=== PATIENT | male | born 1945 | race Caucasian/White ===

== ENCOUNTER → 2018-04-13 08:38 | Outpatient (CLI) | payer MEDICARE, OTHER ==
--- NOTE | ~2018-04-13 | EC ---
PATIENT:YAMILETH TRACY DATE OF SERVICE: 04/13/18 SEX: M MEDICAL RECORD: [id number] DATE OF : 43 LOCATION:D.[facility] AGE OF PATIENT: 72 ADMISSION DATE: 04/13/18 REFERRING PHYSICIAN: INTERPRETING PHYSICIAN: ELAINE KELLY MD ECHOCARDIOGRAM REPORT ECHO CHARGES 4 ECHO COMPLETE Date: 04/13 CLINICAL DIAGNOSIS: CAD, HTN, PALPITATIONS ECHOCARDIOGRAPHIC MEASUREMENTS (adult normal given) AC root (d.<3.7cm) 2.4 cm LV Septum d (<1.2 cm> 1.3 cm Valve Excursion 1.2 cm LV Septum (systole) 1.5 cm Left Atria (s.<4.0cm> 3.9 cm LVPW d(<1.2cm) 1.1 cm RV (d.<2.3cm) 3.0 cm LVPW (sytole) 1.2 cm LV diastole(<5.6CM) 4.3 cm MV E-F(>70mm/sec) cm LV systole 3.7 cm LVOT Diameter 2.2 cm MV exc.(>10mm) cm Est.ejection fraction (50-75%) % DOPPLER: LVIT cm/sec A 67 cm/sec E 60 cm/sec LA cm/sec RVSP 19.8 mmHg LVOT 85 cm/sec AOP1/2T m/s Asc. Ao 125 cm/sec RVOT 59 cm/sec RA cm/sec PA 57 cm/sec AV Gradient Peak 6.2 mmHg AV Mean 2.9 mmHg AV Area 3.1 cm MV Gradient Peak 2.9 mmHg MV Mean 1.1 mmHg MV Area cm COMMENTS: Director Of Cardiac Cath Lab: Press Setup Operator: Bobbi Kelly TAPE# PACS Pericardial Effusion N DATE OF SERVICE: PROCEDURE: Transthoracic echocardiogram. FINDINGS: 1. Left ventricle has mild left ventricular hypertrophy that is concentric. 2. The left ventricle has ejection fraction 65%. 3. The left atrium is normal size, shape, structure, and function. 4. The aortic valve is normal. 5. The mitral valve is grossly normal with trace to mild mitral regurgitation. ECHOCARDIOGRAM REPORT [id number] YAMILETH TRACY 6. The tricuspid valve is grossly normal with a normal RVSP. 7. The right ventricle is normal size, shape, structure, and function. 8. The right atrium is upper limits of normal. 9. The pulmonic valve is normal. There is no pericardial effusion. CONCLUSIONS: The patient has evidence of mild hypertensive heart disease with diastolic dysfunction, otherwise a normal echocardiogram for the patient's stated age. TRANSINT:[id number] Voice Confirmation ID: [id number] DOCUMENT ID: [id number] ELAINE KELLY MD at 1435 CC: [id number] DICTATION DATE: 04/16/18 1114 COMPOSITION STONE APPLICATOR: 04/16/18 1136 DEP CLI 04/13/[address] [address]
[~2018-04-13 08:38] MED LIST: ACTOS15 MG PO; BAYER CHEWABLE81 MG PO; COREG 3.1253.125 MG PO; COZAAR50 MG PO; GLIMEPIRIDE2 MG PO; GLUCOPHAGE1000 MG PO; PLAVIX75 MG PO; PRAVACHOL80 MG PO
[2018-05-20 07:36] VITALS: BMI 24.6
== END | disposition home or self-care (01) ==
LOC: D.ECHO 08:38
DX: I25.10 Atherosclerotic heart disease of native coronary artery without angina pectoris (principal); I10 Essential (primary) hypertension; E78.5 Hyperlipidemia, unspecified; R00.2 Palpitations

== ENCOUNTER → 2018-04-27 06:21 | Outpatient (CLI) | payer MEDICARE, OTHER ==
[~2018-04-27] VITALS: Ht 172.7 cm; Wt 73.6 kg
--- NOTE | ~2018-04-27 | OP ---
PATIENT NAME: YAMILETH TRACY MEDICAL RECORD: [id number] :43 LOCATION:D.CAT ADMISSION DATE: SURGEON: ELAINE KELLY MD DATE OF OPERATION: 04/27/2018 PROCEDURE: Left heart catheterization, LV gram, coronary angiogram, direct stenting of the RCA, left ventriculogram. PROCEDURE IN DETAIL: The patient was brought to cardiac catheterization lab in stable condition. Both groins were sterilely prepped and draped as well as the right wrist. We were able to gain access in the right radial artery using modified Seldinger technique and a 6-Belizean sheath was placed. We were then able to selectively engage the left ventricular cavity, the right coronary artery and the left coronary artery respectively for complete angiography. We then turned our attention to interventional. We intubated the right coronary artery with interventional guiding catheter. We were able to get distal wire position with a 0.014 inch wire. We were then able to directly advance a 3.5 x 26 drug-eluting stent into the area of stenosis in the RCA and deployed at 13 atmospheres with a final result of 0% residual stenosis. FINDINGS: 1. The right coronary artery is a large dominant vessel, is shown to have an area of mid stenosis that is approximately 24 mm long, culminating in about 80% stenosis. 2. The left main is normal. 3. The LAD has an ostial 60% stenosis and a mid 80% stenosis. 4. Circumflex is nondominant, but large vessel giving rise to a terminal obtuse marginal branch. The superior branch of the terminal obtuse marginal branch is shown to have an 80% mid stenosis and a 50% proximal stenosis. HEMODYNAMICS: Left ventricular ejection fraction is 65%. End-diastolic pressure is normal. IMPRESSION: Severe multivessel coronary artery disease. Given the opportunity for bypass versus multivessel stenting, the patient had elected stenting. We went ahead and stented the RCA and will stage the LAD and circumflex for the next visit. At this point in time, I would recommend that we continue aggressive dual antiplatelet therapy, aggressive secondary risk factor modification. Follow up in the clinic in 7-10 days. TRANSINT:[id number] Voice Confirmation ID: [id number] DOCUMENT ID: [id number] ELAINE KELLY MD at 1145 CC: [id number] DICTATION DATE: 04/27/18 0855 MARKETING OPERATIONS INTERN: 04/27/18 1153 DEP CLI 04/27/18 [facility] [address] [facility] [place] [address]
--- NOTE | ~2018-04-27 | HEMODYNAMI ---
PATIENT:YAMILETH TRACY MEDICAL RECORD: [id number] : 43 LOCATION:[facility] ADMISSION DATE: 04/27/18 Generatedon:04/27/20188:55 Patient name: YAMILETH TRACY Patient #: [id number] SSN: : 1945 Date of study: 04/27/2018 Page: Of Hemodynamic Procedure Report Patient Data Patient Demographics Procedure consent was obtained First Name: YAMILETH Gender: Male Last Name: ROSSANA : 1945 Middle Initial: A Age: 72 year(s) Patient #: [id number] Race: Additional ID: [id number] Contact details Address: [address] [place] [address] State: [place] City: [place] Zip code: [address] Past Medical History Allergies: No known allergies Admission Admission Data Admission Date: 04/27/2018 Admission Time: 6:21 Admit Source: Other Height (in.): 68 BSA: 1.88 (m2) Height (cm.): 172.72 BMI: 24.94 (kg/m2) Weight (lbs.): 164 Weight (kg.): 74.39 Lab Results Lab Result Date: 04/27/2018 Lab Result Time: 0:00 Biochemistry Name Units Result Min Max BUN mg/dl 11 --(-*--)-- 7 18 Creatinine mg/dl 1 --(--*-)-- 0.6 1.3 CBC Name Units Result Min Max Hemoglobin g/dl 14.7 --(-*--)-- 13.5 17.5 Procedure Procedure Types Cath Procedure Diagnostic Procedure [facility] w/Coronaries PCI Procedure Coronary Stent Coronary Stent Initial Procedure Description Procedure Date Procedure Date: 04/27/2018 Procedure Start Time: 8:28 Procedure End Time: 8:54 Procedure Staff Name Function David Oneill MD Performing Physician Bernardino Watson RN Nurse Romeo Rangel RT Scrub Procedure Data Cath Procedure Fluoroscopy Diagnostic fluoroscopy Total fluoroscopy Time: 5.9 time: 5.9 min min Diagnostic fluoroscopy Total fluoroscopy dose: 616 dose: 616 mGy mGy Contrast Material Contrast Material Type Amount (ml) Isovue 300 81 Entry Location Entry Primary Successful Side Size Upsize Upsize Entry Closure Succes sful Closure Location (Fr) 1 (Fr) 2 (Fr) Remarks Device Remarks Radial Right 6 Fr artery Short Diagnostic catheters Device Type Used For End Catheter Placement DIAGNOSTIC [place]in 110cm LV Angiography 5Fr catheter ([id number]) DIAGNOSTIC [place] 110cm 5 Left Coronary Fr catheter ([id number]) Angiography Procedure Complications No complications Procedure Medications Medication Administration Route Dosage 0.9% NaCl I.V. 100 ml/hr Oxygen etCO2 Nasal cannula 2 l/min Heparin Flush Bag added to field 2 bags (1000units/500ml NS) Lidocaine 2% added to field 20 Radial Cocktail added to field 1 syringe (Verapomil 2mg/Nitro 400mcg/Heparin 1500units) Versed I.V. 2 mg Fentanyl I.V. 50 mcg Radial Cocktail I.A. 1 syringe (Verapomil 2mg/Nitro 400mcg/Heparin 1500units) Angiomax (bolus) I.V. 11 ml Angiomax Drip I.V. drip 26 ml/hr (250mg/50ml NS) (Standard) Plavix P.O. 300 mg Angiomax Drip wasted 26 ml/hr (250mg/50ml NS) (Standard) Hemodynamics Rest BSA: 1.88 (m2) HGB: 14.7 (g/dl) O2 Consumption: Estimated: 214.97 (ml/min) O2 Co nsumption indexed: Estimated:114.35 (ml/min/m) Heart Rate: 68 (bpm) Pressure Samples Time Site Value (mmHg) Purpose Heart Use Rate(bpm) 8:32 LV 137/1,10 EDP 93 8:32 AO 116/68(92) Pullback 82 8:32 LV 112/7,11 Pullback 82 8:39 AO 117/63(89) Snapshot 75 Gradients Valve Time Site 1 Site 2 Mean SEP/DFP Peak To Heart Use (mmHg) (sec/min) Peak Rate (mmHg) (bpm) Aortic 8:32 LV AO 0 82 112/7,11 116/68(92) Calculations Valve P-P Mean Valve Index Valve Source Name Gradient Area Flow (cm2) Aortic 0 0 Snapshots Pre Cath Intra NCS Post Cath Vital Signs Time Heart Resp SPO2 etCO2 NIBP (mmHg) Rhythm Pain Sedation Rate (ipm) (%) (mmHg) Status Level (bpm) 8:20:00 64 14 100 36.8 146/73(122) NSR 0 (11) 10(A) , No pain 8:24:41 68 17 100 37.6 138/75(113) NSR 0 (11) 10(A) , No pain 8:29:26 72 14 100 41.4 132/68(108) NSR 0 (11) 10(A) , No pain 8:34:04 77 14 96 39.1 118/63(83) NSR 0 (11) 10(A) , No pain 8:38:43 77 17 98 37.6 128/73(92) NSR 0 (11) 10(A) , No pain 8:43:24 70 14 100 30.1 113/66(85) NSR 0 (11) 10(A) , No pain 8:48:00 69 14 100 37.6 124/63(83) NSR 0 (11) 10(A) , No pain 8:52:41 67 15 37.6 132/63(103) NSR 0 (11) 10(A) , No pain Medications Time Medication Route Dose Verified Delivered Reason Note s Effectiveness by by 8:18:24 0.9% NaCl I.V. 100 Bernardino Bernardino Per physician ml/hr Walter Watson RN RN 8:18:34 Oxygen etCO2 2 l/min Bernardino Bernardino Per physician Nasal Walter Watson cannula RN RN 8:18:46 Heparin Flush added 2 bags Bernardino Bernardino used for Bag to Lorigan Lorigan procedure (1000units/500ml field ERVIN RN NS) 8:18:58 Lidocaine 2% added 20ml Bernardino Bernardino for local to vial Lorigan Lorigan anesthetic field ERVIN RN 8:19:19 Radial Cocktail added 1 Bernardino Bernardino used for (Verapomil to syringe Lorigan Lorigan procedure 2mg/Nitro field ERVIN RN 400mcg/Heparin 1500units) 8:27:47 Versed I.V. 2 mg Bernardino Bernardino for sedation Walter Watson RN, RN 8:27:54 Fentanyl I.V. 50 mcg Bernardino Bernardino for anxiety Lorigan Lorigan RN RN 8:31:08 Radial Cocktail I.A. 1 Bernardino David for (Verapomil syringe Walter Oneill MD vasodilation 2mg/Nitro RN 400mcg/Heparin 1500units) 8:44:48 Angiomax (bolus) I.V. 11 ml Bernardino Bernardino for Walter Watson anticoagulation RN RN 8:46:07 Angiomax Drip I.V. 26 Bernardino Bernardino for (250mg/50ml NS) drip ml/hr Walter Watson anticoagulation (Standard) RN RN 8:51:45 Plavix P.O. 300 mg Bernardino Bernardino for Walter Watson antiplatelet RN RN therapy 8:52:12 Angiomax Drip wasted 26 Bernardino Bernardino to sharp's (250mg/50ml NS) ml/hr Walter Watson (Standard) RN disc pad knockout worker Log Time Note 8:00:24 Patient Height : 68 inches 8:00:29 Patient Weight : 164 lbs 8:02:39 Patient allergic to No known allergies 8:03:20 Diagnostic Cath Status : Elective 8:03:29 Admit Source: Other 8:04:25 Brayden Baker RT monitor 8:04:31 ACC Patient presents with Stable Angina CCS Anginal Class 2--Slight limitation of ordinary activity. 8:05:03 Bernardino Watson RN sent for patient. Start room use. 8:05:11 Informed consent obtained and on chart 8:05:20 Time tracking: Regular hours (M-F 7:00 - 5:00) 8:05:28 Plan of Care:Hemodynamics will remain stable., Cardiac rhythm will remain stable., Comfort level will be maintained., Respiratory function will remain adequate., Patient/ family verbilizes understanding of procedure., Procedure tolerated without complication., Recovers from procedure without complications.. 8:10:16 Patient received from Pre/Post Procedure Room to CCL 1 Alert and oriented. Tansferred to table in Supine position. 8:10:17 Warm blankets applied, and natalia hugger turned on for patient comfort. 8:10:18 Correct patient and procedure confirmed by team. 8:10:19 ECG and BP/O2 sat monitors applied to patient. 8:18:24 0.9% NaCl 100 ml/hr I.V. was administered by Bernardino Watson RN; Per physician; 8:18:34 Oxygen 2 l/min etCO2 Nasal cannula was administered by Bernardino Watson RN; Per physician; 8:18:46 Heparin Flush Bag (1000units/500ml NS) 2 bags added to field was administered by Bernardino Watson RN; used for procedure; 8:18:58 Lidocaine 2% 20ml vial added to field was administered by Bernardino Watson RN; for local anesthetic; 8:19:06 Vital chart was started 8:19:19 Radial Cocktail (Verapomil 2mg/Nitro 400mcg/Heparin 1500units) 1 syringe added to field was administered by Bernardino Watson RN; used for procedure; 8:22:50 Baseline sample Acquired. 8:22:53 Rhythm: sinus rhythm 8:22:55 Full Disclosure recording started 8:23:19 H&P Date Dictated: 04/15/2018 Within 30 days and on chart.. 8:23:22 Pre-procedure instructions explained to patient. 8:23:28 Pre-op teaching completed and patient verbalized understanding. 8:23:30 Family in patients room. 8:23:33 Patient NPO since Midnight. 8:23:36 Is the patient allergic to Iodine/contrast media? No. 8:23:40 Is patient on blood thinner?Yes 8:23:51 loaded on plavix 8:23:55 Patient diabetic? Yes. 8:23:57 If diabetic: On Metformin? Yes 8:24:06 ----Pre-sedation anethsthesia assessment.---- 8:24:14 Previous problem with sedation/anesthesia? No ? 8:24:41 Snore? Yes 8:24:43 Sleep apnea? N/A 8:24:45 Deviated septum? No 8:24:46 Opens mouth fully? Yes 8:24:48 Sticks out tongue? Yes 8:24:50 Airway obstruction? No ? 8:24:53 Dentures? No ? 8:24:56 Pre procedure: right dorsailis pedis pulse 2+ Normal; easily identifiable; not easily obliterated 8:24:59 Modified Amadou's test Ulnar < 7 seconds 8:25:02 Patient pain scale 0/10 ?. 8:25:11 IV patent on arrival in left forearm with 0.9% NaCl at 10ml/hr. 8:27:13 Lab Result : Creatinine 1 mg/dl 8:27:13 Lab Result : BUN 11 mg/dl 8:27:13 Lab Result : Hemoglobin 14.7 g/dl 8:27:17 Lab results completed and on chart. 8:27:20 Right Radial & Right Groin area was prepped with chlora-prep and draped in sterile fashion 8:27:21 Alarms reviewed by R. N. 8:27:22 Sharps counted by scrub and verified by R.N. 8::23 --------ALL STOP TIME OUT------ 8::27 Final Timeout: patient, procedure, and site verified with staff and physician. All members of the team are in agreement. 8:27:29 Right Radial & Right Groin site verified by team. 8:27:32 Physical assessment completed. ASA score P 2 - A patient with mild systemic disease as per David Oneill MD. 8:27:36 Sedation plan: IV Moderate Sedation Medication:Versed, Fentanyl 8:27:45 Use device set Radial Dx or PCI 8:27:46 ACIST Syringe (45520) opened to sterile field. 8:27:47 Versed 2 mg I.V. was administered by Bernardino Watson RN; for sedation; 8:27:47 Medline Cath Pack ([id number]) opened to sterile field. 8:27:48 Bag Decanter (2002) opened to sterile field. 8:27:52 DIAGNOSTIC WIRE .035 260cm J wire (567140) opened to sterile field. 8:27:54 Fentanyl 50 mcg I.V. was administered by Bernardino Watson RN; for anxiety; 8:27:54 ACIST Hand Control (07036) opened to sterile field. 8:27:55 ACIST Manifold (96841) opened to sterile field. 8:27:56 Tegaderm 4 x 4 (1626W) opened to sterile field. 8:27:57 MBrace Wrist Support ([id number]) opened to sterile field. 8:27:59 NEEDLE Cook 21G 4cm Radial (E27773) opened to sterile field. 8:28:00 TR BAND Standard ([id number]) opened to sterile field. 8:28:17 Procedure started. 8:28:23 Local anesthetic to right radial artery with Lidocaine 2% by David Oneill MD.INITIAL ACCESS ONLY 8:28:40 A 6 Fr Short sheath was inserted into the Right Radial artery 8:29:07 SHEATH 6Fr Prelude Radial ([id number]) opened to sterile field. 8:30:28 Zero performed for pressure channel P1 8:30:45 A DIAGNOSTIC [place] 110cm 5Fr catheter (692780) was advanced over the wire and used for LV Angiography. 8:31:08 Radial Cocktail (Verapomil 2mg/Nitro 400mcg/Heparin 1500units) 1 syringe I.A. was administered by David Oneill MD; for vasodilation; 8:32:55 LV angiography performed. 8:32:58 LV gram done using VALDEZ 8:33:00 LV hemodynamics recorded. 8:33:03 Injector settings: Ml/sec: 10, Volume: 20, 8:33:16 RCA angiography performed. 8:35:24 Catheter exchanged over wire. 8:35:43 A DIAGNOSTIC [place] 110cm 5 Fr catheter (350516) was advanced over the wire and used for Left Coronary Angiography. 8:36:26 LCA angiography performed. 8:39:50 COPILOT Valve Control (1716111) opened to sterile field. 8:40:02 INFLATOR Merit BasixCompak (MA7710) opened to sterile field. 8:40:50 GUIDE 6FR AR 1.0 catheter ([id number]) opened to sterile field. 8:40:57 Catheter exchanged over wire. 8:41:22 Procedure type changed to Cath procedure, Diagnostic procedure, LHC, LHC w/Coronaries, PCI procedure, Coronary Stent, Coronary Stent Initial 8:41:30 ACC Pre-intervention MARY ANNE Flow is 3. 8:41:46 6 Fr AR 1 guide catheter was inserted over the wire 8:42:02 BMW 300cm Oriska 2 J wire ([id number]) opened to sterile field. 8:44:48 Angiomax (bolus) 11 ml I.V. was administered by Bernardino Watson RN; for anticoagulation; 8:45:09 BMW J wire advanced. 8:46:07 Angiomax Drip (250mg/50ml NS) (Standard) 26 ml/hr I.V. drip was administered by Bernardino Watson RN; for anticoagulation; 8:48:41 Place stent Inflation Number: 1 A MANUELA RX 3.5 x 26 stent ([id number]) was prepped and advanced across the Mid RCA. The stent was deployed at 13 ASHTYN for 0:17 (min:sec). 8:49:32 Stent catheter was removed intact over wire. 8:49:32 Wire removed. 8:49:35 Guide catheter removed. 8:49:44 Procedure ended.(Physican Out) 8:49:59 Fluoroscopy time 05.90 minutes. 8:50:05 Fluoroscopy dose: 616 mGy 8:50:05 Flurop Dose total: 616 8:50:10 Contrast amount:Isovue 300 81ml. 8:50:11 Sharps counted by scrub and verified by R.N. 8:50:24 TR BAND Standard ([id number]) opened to sterile field. 8:51:34 TR band inflated with 11cc of air. 8:51:45 Plavix 300 mg P.O. was administered by Bernardino Watson RN; for antiplatelet therapy; 8:51:49 Post right radial artery:stable 8:51:50 Post Procedure Pulses reassessed and unchanged 8:51:58 Post-procedure physical assessment completed. ASA score P 2 - A patient with mild systemic disease as per David Oneill MD. 8:52:01 Post procedure rhythm: sinus rhythm 8:52:03 Post procedure instruction explained to patient.Patient verbalizes understanding. 8:52:05 Procedure and supply charges have been captured, reviewed, submitted and are correct. 8:52:12 Angiomax Drip (250mg/50ml NS) (Standard) 26 ml/hr wasted was administered by Bernardino Watson RN; to sharp's; 8:52:39 TR BAND Standard ([id number]) opened to sterile field. 8:53:16 Procedure Complication : No complications 8:53:20 Vital chart was stopped 8:53:20 See physician's report for complete and final results. 8:53:23 Report given to Pre/Post Procedure Room. 8:53:27 Patient transfered to Pre/Post Procedure Room with Bed. 8:54:39 Procedure ended. 8:54:39 Full Disclosure recording stopped 8:54:50 ACC-PCI Only Patient was given prescriptions, or instructed by David Oneill MD to start/continue the following medications upon discharge: Aspirin, Plavix 8:54:53 End room use (Document Last) Intervention Summary Intervention Notes Time ActionType Lesion and Equipment Used Action# Pressure Duration Attributes 8:48:41 Place stent Mid RCA MANUELA RX 3.5 x 1 13 00:18 26 stent ([id number]) Device Usage Item Name Manufacture Quantity Catalog Number Hospital Part Current Minimal Lot# / Charge Number Stock Stock Serial# Code ACIST Syringe Acist 1 66085 443876 408478 191279 20 (26461) Medical Systems Inc Medline Cath Cardinal 1 [id number] 979711 14567 548773 5 Pack Health ([id number]) Bag Decanter Microtek 1 2001S 104198 51492 927581 5 (2001S) Medical Inc. DIAGNOSTIC WIRE St [place] 1 865509 717739 671720 870874 30 .035 260cm J wire (028150) ACIST Hand Acist 1 96092 575744 271625 278933 5 Control (85442) [employer] Systems Inc ACIST Manifold Acist 1 26393 338903 913701 474094 5 (19844) Medical Systems Inc Tegaderm 4 x 4 3M 1 1626W 680568 025943 748264 5 (1626W) MBrace Wrist Advanced 1 140-0250-00 962601 62698 379385 5 Support Vascular (756500796) Dynamics NEEDLE Cook 21G Cook Medical 1 Z16299 019169 976365 291497 5 4cm Radial (F99087) TR BAND Terumo 3 [id number] 029495 311312 569793 40 Standard (QYT12QCH) SHEATH 6Fr Merit 1 [id number] 475215 933884 743241 5 Prelude Radial Medical ([id number]) DIAGNOSTIC Terumo 1 40-5023 124653 422144 346699 5 [place] 110cm 5Fr catheter (826412) DIAGNOSTIC Terumo 1 40-5013 150735 209725 429553 5 [place] 110cm 5 Fr catheter (015641) COPILOT Valve Novoa 1 9088188 015343 960549 103115 5 Control Vascular (4009731) INFLATOR Merit Merit 1 EE6661 561456 904467 507241 15 BasHard 8 Games Medical (QU6348) GUIDE 6FR AR Medtronic 1 [id number] 065010 22037 239201 1 1.0 catheter (KQ9AD09) BMW 300cm Novoa 1 [id number] 595947 225689 204476 5 Oriska 2 J Vascular wire (3176209Y) MANUELA RX 3.5 x Medtronic 1 [id number] 890689 1654342 075097 5 [id number] 26 stent ([id number]) Signature Audit Tillson Stage Time Signature Unsigned Intra-Procedure 04/27/2018 Romeo Rangel 8:55:38 AM RT(R) [place] [address] [place] [address]
[2018-04-27 07:05] VITALS: BP 126/66; Ht 172.7 cm; Wt 73.6 kg
[2018-04-27 07:55] LABS: BASOPHILS 0.8 % (0-2); EOSINOPHILS 4.7 % (0-7); HEMATOCRIT 43.2 % (42.0-54.0); HEMOGLOBIN 14.7 g/dL (13.5-17.5); IMMATURE GRANULOCYTES 0.2 % (0-5); LYMPHOCYTES 26.3 % (15-50); MCH 31.1 pg (26.0-34.0); MCV 91.5 fL (80.0-100.0); MEAN PLATELET VOLUME 9.1 fL (7.4-10.4); MONOCYTES 11.9 % (2-11); NEUTROPHILS 56.1 % (40-80); PLATELET COUNT 238 10x3/uL (130-400); RBC 4.72 10x6/uL (4.20-6.10); RDW 12.9 % (11.5-14.5)
[2018-04-27 08:04] LABS: CALC OSMOLALITY 283 mosm/kg (275-300); CALCIUM 8.9 mg/dL (8.5-10.1); CARBON DIOXIDE 26.6 mmol/L (21.0-32.0); CHLORIDE - SERUM 105 mmol/L (98-107); GLUCOSE 164 mg/dL (74-106); POTASSIUM - SERUM 4.3 mmol/L (3.5-5.1); SODIUM 141 mmol/L (136-145); UREA NITROGEN 11 mg/dL (7-18); eGFR NON AFRICAN AMERICAN 78 mL/min (90-120)
== END | disposition home or self-care (01) ==
LOC: D.CATH 06:21
PROVIDERS: Internal Medicine Cardiovascular Disease
DX: I25.10 Atherosclerotic heart disease of native coronary artery without angina pectoris (principal)
CPT/HCPCS: C9600; 93458

== ENCOUNTER 2018-05-20 06:51 | Outpatient (CLI) | payer MEDICARE, OTHER ==
[~2018-05-20] VITALS: Ht 172.7 cm; Wt 73.6 kg
--- NOTE | ~2018-05-20 | OP ---
PATIENT NAME: YAMILETH TRACY MEDICAL RECORD: [id number] :43 LOCATION:D.CAT ADMISSION DATE: SURGEON: ELAINE KELLY MD DATE OF OPERATION: 05/20/2018 PROCEDURE: 1. Selective coronary angiography of the LAD and obtuse marginal branch. 2. Direct stenting of the LAD. 3. Direct stenting of the obtuse marginal branch, both with drug-eluting stents. PROCEDURE IN DETAIL: The patient was brought to cardiac catheterization lab in stable condition. Both groins were sterilely prepped and draped. The patient had a 6-Croatian sheath placed in the right radial artery using modified Seldinger technique. The patient then had selective catheterization of the left main with 3.0 EBU with sideholes. We were then able to get distal wire positioned into the LAD. We were then able to advance a 3.0 x 26 drug-eluting stent into the LAD and deployed at nominal pressures. We were then able to show visualize the reduction of the 90% stenosis to 0% residual stenosis. There was a step up distally and a step down proximally. There was no edge dissection or distal embolization seen on multiple views. Good MARY ANNE 3 flow. We then turned our attention to the obtuse marginal branch where we were able to demonstrate a segmental proximal and ostial stenosis at 80-90%. We were then able to directly stent it with a 2.5 x 26 drug-eluting stent taken to nominal pressures with reduction demonstration of the stenosis to 0%. Procedure was terminated successfully. The patient was stable throughout the procedure. FINDINGS: A 90% stenosis in the LAD, 80% to 90% stenosis in the obtuse marginal branch. Successful direct stenting with drug-eluting stents to the LAD and the obtuse marginal branch. RECOMMENDATIONS: Usual post-PCI care. Continue aggressive secondary risk factor modification, dual antiplatelet therapy for 1 year. TRANSINT:[id number] Voice Confirmation ID: [id number] DOCUMENT ID: [id number] ELAINE KELLY MD at 0749 CC: [id number] DICTATION DATE: 05/20/18 0932 PHOTOGRAPHY MANAGER: 05/20/18 1015 DEP CLI 05/20/18 [place] [address]
--- NOTE | ~2018-05-20 | HEMODYNAMI ---
PATIENT:YAMILETH TRACY MEDICAL RECORD: [id number] : 43 LOCATION:[facility] ADMISSION DATE: 05/20/18 Generatedon:05/20/20189:30 Patient name: YAMILETH TRACY Patient #: [id number] SSN: : 1945 Date of study: 05/20/2018 Page: Of Hemodynamic Procedure Report Patient Data Patient Demographics Procedure consent was obtained First Name: YAMILETH Gender: Male Last Name: ROSSANA : 1945 Middle Initial: A Age: 72 year(s) Patient #: [id number] Race: Additional ID: [id number] Contact details [address]: [address] [place] [address] State: [place] City: [place] Zip code: [address] Past Medical History Allergies: No known allergies Admission Admission Data Admission Date: 05/20/2018 Admission Time: 6:51 Procedure Procedure Types Cath Procedure Diagnostic Procedure Sedation Charges Moderate Sedation up to 15 minutes PCI Procedure Coronary Stent Coronary Stent Initial x2 Procedure Description Procedure Date Procedure Date: 05/20/2018 Procedure Start Time: 9:07 Procedure End Time: 9:30 Procedure Staff Name Function David Oneill MD Performing Physician Leann Joaquin RT Monitor Kareem Bianchi RN Nurse Max Salas RT Scrub Procedure Data Cath Procedure Fluoroscopy Diagnostic fluoroscopy Total fluoroscopy Time: 7.4 time: 7.4 min min Diagnostic fluoroscopy Total fluoroscopy dose: 289 dose: 289 mGy mGy Contrast Material Contrast Material Type Amount (ml) Isovue 300 88 Entry Location Entry Primary Successful Side Size Upsize Upsize Entry Closure Prasad ccessful Closure Location (Fr) 1 (Fr) 2 (Fr) Remarks Device Remarks Radial Right 6 Fr Mechanical artery Short Compression Estimated blood loss: 10 ml Procedure Complications No complications Procedure Medications Medication Administration Route Dosage Oxygen etCO2 Nasal cannula 2 l/min Lidocaine 2% added to field 20 Heparin Flush Bag added to field 2 bags (1000units/500ml NS) 0.9% NaCl I.V. 100 ml/hr Radial Cocktail I.A. 1 syringe (Verapomil 2mg/Nitro 400mcg/Heparin 1500units) Versed I.V. 2 mg Fentanyl I.V. 50 mcg Angiomax (bolus) I.V. 11 ml Angiomax Drip I.V. drip 25.9 ml/hr (250mg/50ml NS) (Standard) Plavix P.O. 300 mg Hemodynamics Rest Heart Rate: 66 (bpm) Snapshots Pre Cath Intra NCS Post Cath Vital Signs Time Heart Resp SPO2 etCO2 NIBP (mmHg) Rhythm Pain Sedation Rate (ipm) (%) (mmHg) Status Level (bpm) 8:44:50 85 13 97 0 153/83(128) NSR 0 (11) 10(A) , No pain 8:49:13 66 29 100 33.9 155/80(102) NSR 0 (11) 10(A) , No pain 8:53:29 69 15 100 34.6 150/87(124) NSR 0 (11) 10(A) , No pain 8:57:47 69 17 99 36.9 148/77(119) NSR 0 (11) 10(A) , No pain 9:02:03 70 14 96 41.4 136/71(107) NSR 0 (11) 10(A) , No pain 9:06:19 71 15 94 42.9 131/72(106) NSR 0 (11) 9(A) , No pain 9:10:37 78 15 95 42.1 119/62(103) NSR 0 (11) 9(A) , No pain 9:14:49 77 15 93 37.6 125/68(96) NSR 0 (11) 9(A) , No pain 9:19:07 72 14 96 37.6 120/64(88) NSR 0 (11) 9(A) , No pain 9:23:23 69 14 97 37.6 133/65(91) NSR 0 (11) 9(A) , No pain 9:27:43 66 14 98 36.1 127/66(99) NSR 0 (11) 10(A) , No pain Medications Time Medication Route Dose Verified Delivered Reason Note s Effectiveness by by 8:47:00 Oxygen etCO2 2 l/min David Serna used for Nasal Norred Bianchi tablet coater cannula 8:47:08 Lidocaine 2% added 20ml David David for local to vial Mai Oneill MD anesthetic field 8:47:13 Heparin Flush added 2 bags David David used for Bag to Mai Oneill MD procedure (1000units/500ml field JOHN NS) 8:47:22 0.9% NaCl I.V. 100 David Buffie Per physician ml/hr Mai Bianchi RN, MD 8:47:37 Radial Cocktail I.A. 1 David David for (Verapomil syringe Mai Oneill MD vasodilation 2mg/Nitro MD 400mcg/Heparin 1500units) 9:04:40 Versed I.V. 2 mg David Buffie for sedation Mai Bianchi RN, MD 9:04:46 Fentanyl I.V. 50 mcg David Buffie for sedation aMi Bianchi RN, MD 9:11:29 Angiomax (bolus) I.V. 11 ml David Buffie for Mai Bianchi RN anticoagulation 9:13:18 Angiomax Drip I.V. 25.9 David Buffie for (250mg/50ml NS) drip ml/hr Mai Bianchi RN anticoagulation (Standard) 9:29:54 Plavix P.O. 300 mg David Buffie for Mai Bianchi RN antiplatelet therapy Procedure Log Time Note 8:16:46 Time tracking: Regular hours (M-F 7:00 - 5:00) 8:16:50 Plan of Care:Hemodynamics will remain stable., Cardiac rhythm will remain stable., Comfort level will be maintained., Respiratory function will remain adequate., Patient/ family verbilizes understanding of procedure., Procedure tolerated without complication., Recovers from procedure without complications.. 8:30:09 Leann Counts RT(R) sent for patient. Start room use. 8:40:10 Patient received from Pre/Post Procedure Room to CCL 3 Alert and oriented. Tansferred to table in Supine position. 8:40:11 Warm blankets applied, and natalia hugger turned on for patient comfort. 8:40:11 Correct patient and procedure confirmed by team. 8:40:12 Signed procedure consent form obtained from patient. 8:40:13 ECG and BP/O2 sat monitors applied to patient. 8:43:40 Vital chart was started 8:47:00 Oxygen 2 l/min etCO2 Nasal cannula was administered by Kareem Bianchi RN; used for procedure; 8:47:08 Lidocaine 2% 20ml vial added to field was administered by David Oneill MD; for local anesthetic; 8:47:13 Heparin Flush Bag (1000units/500ml NS) 2 bags added to field was administered by David Oneill MD; used for procedure; 8:47:22 0.9% NaCl 100 ml/hr I.V. was administered by Kareem Bianchi RN; Per physician; 8:47:37 Radial Cocktail (Verapomil 2mg/Nitro 400mcg/Heparin 1500units) 1 syringe I.A. was administered by David Oneill MD; for vasodilation; 8:51:34 Full Disclosure recording started 8:51:44 Baseline sample Acquired. 8:51:48 Rhythm: sinus rhythm 8:52:06 H&P Date Dictated: 05/04/2018 Within 30 days and on chart., H&P Addendum completed by physician on day of procedure. (MUST COMPLETE FOR ALL OUTPATIENTS). 8:52:07 Pre-procedure instructions explained to patient. 8:52:07 Pre-op teaching completed and patient verbalized understanding. 8:52:10 Family in waiting room. 8:52:12 Patient NPO since Midnight. 8:52:25 Is the patient allergic to Iodine/contrast media? No. 8:52:27 Is patient on blood thinner?Yes 8:52:29 ACC The patient was administered the following blood thiners within the last 24 hours: ACCPlavix 8:52:30 Patient diabetic? Yes. 8:52:37 If diabetic: On Metformin? Yes 8:52:39 If on Metformin: Last Dose? 05/18/2018 8:52:47 Previous problem with sedation/anesthesia? No ? 8:52:55 Snore? Yes 8:52:57 Sleep apnea? No 8:52:59 Deviated septum? No 8:52:59 Opens mouth fully? Yes 8:53:00 Sticks out tongue? Yes 8:53:02 Airway obstruction? No ? 8:53:04 Dentures? No ? 8:53:08 Pre procedure: right dorsailis pedis pulse 2+ Normal; easily identifiable; not easily obliterated 8:53:10 Modified Amadou's test Ulnar < 7 seconds 8:53:13 Patient pain scale 0/10 ?. 8:53:20 IV patent on arrival in left hand with 0.9% NaCl at [facility]. 8:53:22 Lab results completed and on chart. 8:53:26 Right Radial & Right Groin area was prepped with chlora-prep and draped in sterile fashion 8:53:27 Alarms reviewed by R. N. 8:53:27 Sharps counted by scrub and verified by R.N. 8:53:38 Use device set CATH PACK 8:53:43 Use device set NORRED PCI 8:53:45 ACIST Syringe (98656) opened to sterile field. 8:53:46 ACIST Hand Control (04190) opened to sterile field. 8:53:46 ACIST Manifold (12509) opened to sterile field. 8:53:46 Medline Cath Pack ([id number]) opened to sterile field. 8:53:47 Bag Decanter (2002S) opened to sterile field. 8:53:48 DIAGNOSTIC WIRE .035 260cm J wire (759098) opened to sterile field. 8:53:48 INFLATOR Merit BasixCompak (SZ7659) opened to sterile field. 8:53:49 COPILOT Valve Control (5040949) opened to sterile field. 8:53:50 BMW 190cm [place] 2 J wire ([id number]) opened to sterile field. 8:54:07 SHEATH 6Fr Prelude Radial ([id number]) opened to sterile field. 8:59:19 Physician paged 9:02:24 Zero performed for pressure channel P1 9:04:05 Final Timeout: patient, procedure, and site verified with staff and physician. All members of the team are in agreement. 9:04:07 Right Radial site verified by team. 9:04:09 Physical assessment completed. ASA score P 2 - A patient with mild systemic disease as per David Oneill MD. 9:04:12 Sedation plan: IV Moderate Sedation Medication:Versed, Fentanyl 9:04:40 Versed 2 mg I.V. was administered by Kareem Bianchi RN; for sedation; 9:04:46 Fentanyl 50 mcg I.V. was administered by Kareem Bianchi RN; for sedation; 9:07:30 Procedure started. 9:07:34 Local anesthetic to right radial artery with Lidocaine 2% by David Oneill MD.INITIAL ACCESS ONLY 9:09:27 A 6 Fr Short sheath was inserted into the Right Radial artery 9:10:35 6 Fr XBLAD 3.5 guide catheter was inserted over the wire 9:11:29 Angiomax (bolus) 11 ml I.V. was administered by Kareem Bianchi RN; for anticoagulation; 9:13:18 Angiomax Drip (250mg/50ml NS) (Standard) 25.9 ml/hr I.V. drip was administered by Kareem Bianchi RN; for anticoagulation; ::18 Guide Catheter removed. unable to cannulate vessel. 9:13:30 GUIDE 6FR EBU 3.0 SH catheter ([id number]) opened to sterile field. 9:14:10 6 Fr EBU 3.0 SH guide catheter was inserted over the wire 9:17:40 BMW TO LAD wire advanced. 9:20:12 Place stent Inflation Number: 1 A MANUELA RX 3.0 x 26 stent ([id number]) was prepped and advanced across the Mid LAD. The stent was deployed at 14 ASHTYN for 0:12 (min:sec). 9:21:14 Stent catheter was removed intact over wire. 9:22:37 Wire redirected to CIRC OM. 9:25:13 Place stent Inflation Number: 1 A MANUELA RX 2.5 x 26 stent ([id number]) was prepped and advanced across the 1st Ob Ivania. The stent was deployed at 12 ASHTYN for 0:09 (min:sec). 9:25:33 Stent catheter was removed intact over wire. 9:26:09 Wire removed. 9:26:10 Guide catheter removed. 9:26:22 Sheath removed intact; hemostasis achieved with Mechanical Compression to the Right Radial artery. 9:26:36 TR BAND Standard ([id number]) opened to sterile field. 9:26:40 Procedure ended.(Physican Out) 9:27:05 Fluoroscopy time 07.40 minutes. 9:27:11 Flurop Dose total: 289 9:27:11 Fluoroscopy dose: 289 mGy 9:27:16 Contrast amount:Isovue 300 88ml. 9:27:18 Sharps counted by scrub and verified by R.N. 9:27:22 TR band inflated with 12cc of air. 9:27:23 Insertion/operative site no bleeding no hematoma. 9:27:30 Post right radial artery:stable, clean and dry 9:27:32 Post Procedure Pulses reassessed and unchanged 9::42 Post-procedure physical assessment completed. ASA score P 2 - A patient with mild systemic disease as per David Oneill MD. 9:27:44 Post procedure rhythm: unchanged. 9:27:47 Estimated blood loss: 10 ml 9:27:49 Post procedure instruction explained to patient.Patient verbalizes understanding. 9:27:50 Patient needs reinforcement of post procedure teaching. 9:28:33 Procedure type changed to Cath procedure, Diagnostic procedure, Sedation Charges, Moderate Sedation up to 15 minutes, PCI procedure, Coronary Stent, Coronary Stent Initial x2 9:28:39 Procedure Complication : No complications 9::42 See physician's report for complete and final results. 9:29:30 MBrace Wrist Support ([id number]) opened to sterile field. 9:29:48 GUIDE 6FR XBLAD 3.5 catheter ([id number]) opened to sterile field. 9:29:54 Plavix 300 mg P.O. was administered by Kareem Bianchi RN; for antiplatelet therapy; 9:30:05 Procedure and supply charges have been captured, reviewed, submitted and are correct. 9:30:14 Vital chart was stopped 9:30:15 Report given to Pre/Post Procedure Room. 9:30:18 Patient transfered to Pre/Post Procedure Room with Stretcher. 9:30:28 Procedure ended. 9:30:28 Full Disclosure recording stopped 9:30:32 End room use (Document Last) Intervention Summary Intervention Notes Time ActionType Lesion and Equipment Used Action# Pressure Duration Attributes 9:20:12 Place stent Mid LAD MANUELA RX 3.0 x 1 14 00:12 26 stent ([id number]) 9:25:13 Place stent 1st Ob [place] MANUELA RX 2.5 x 1 12 00:09 26 stent ([id number]) Device Usage Item Name Manufacture Quantity Catalog Number Hospital Part Current Minimal Lot# / Charge Number Stock Stock Serial# Code ACIST Syringe Acist 1 12935 712745 026699 [id number] 20 (23317) Medical Systems Bidgely ACIST Hand Acist 1 86642 159516 129482 422724 5 Control (94899) Medical Systems Bidgely ACIST Manifold Acist 1 06230 848059 759648 617986 5 (61308) Medical Systems Inc Medline Cath Cardinal 1 [id number] 394764 71774 224896 5 Pack Health ([id number]) Bag Decanter Microtek 1 2001S 175270 81375 735624 5 (2001S) Medical Inc. DIAGNOSTIC WIRE St [place] 1 957140 399401 726895 663282 30 .035 260cm J wire (457016) INFLATOR Merit Merit 1 BT9219 563634 342714 370459 15 BasixCompak Medical ([id number]) COPILOT Valve [place] 1 6367856 850726 710511 164331 5 Control Vascular (3930503) BMW 190cm Novoa 1 [id number] 260791 41254 921391 5 [place] 2 J Vascular wire (2207371N) SHEATH 6Fr Merit 1 [id number] 674252 880370 265421 5 Prelude Radial Medical ([id number]) GUIDE 6FR EBU Medtronic 1 [id number] 308305 12223 508759 0 3.0 SH catheter ([id number]) MANUELA RX 3.0 x Medtronic 1 [id number] 275434 0939285 645650 5 [id number] 26 stent ([id number]) MANUELA RX 2.5 x Medtronic 1 [id number] 935683 1249612 149879 5 [id number] 26 stent ([id number]) TR BAND Terumo 1 [id number] 228868 556571 915504 40 Standard ([id number]) MBrace Wrist Advanced 1 140-0250-00 145480 16740 350468 5 Support Vascular ([id number]) Dynamics GUIDE 6FR XBLAD Cardinal 1 [id number] 621146 240167 483436 10 3.5 catheter Health (20895381) Signature Audit [place] Stage Time Signature Unsigned Intra-Procedure 05/20/2018 Leann 9:30:42 AM Counts RT(R) Signatures Monitor : Leann Signature : Counts RT Date : Time : [facility] [address] [place] [address]
[2018-05-20 07:36] VITALS: BP 129/70; Ht 172.7 cm; Wt 73.6 kg
[2018-05-20 07:42] LABS: BASOPHILS 0.8 % (0-2); EOSINOPHILS 4.5 % (0-7); HEMOGLOBIN 15.7 g/dL (13.5-17.5); IMMATURE GRANULOCYTES 0.3 % (0-5); MCHC 34.9 g/dL (31.0-37.0); MCV 91.6 fL (80.0-100.0); MEAN PLATELET VOLUME 8.9 fL (7.4-10.4); MONOCYTES 12.7 % (2-11); NEUTROPHILS 54.7 % (40-80); PLATELET COUNT 227 10x3/uL (130-400); RBC 4.91 10x6/uL (4.20-6.10)
[2018-05-20 07:50] LABS: ANION GAP 10.8 mmol/L (8-16); CALCIUM 8.5 mg/dL (8.5-10.1); CARBON DIOXIDE 28.1 mmol/L (21.0-32.0); CREATININE - SERUM 1.2 mg/dL (0.6-1.3); POTASSIUM - SERUM 3.9 mmol/L (3.5-5.1)
== END 2018-05-20 14:45 | disposition home or self-care (01) ==
LOC: D.CATH 06:51
PROVIDERS: Internal Medicine Cardiovascular Disease
DX: I25.119 Atherosclerotic heart disease of native coronary artery with unspecified angina pectoris (principal); Z01.812 Encounter for preprocedural laboratory examination
CPT/HCPCS: C9600; C9601

== ENCOUNTER → 2018-08-23 17:00 | Outpatient (CLI) | payer MEDICARE, OTHER ==
[2018-05-20 07:36] VITALS: BMI 24.6
[2018-08-23 18:08] LABS: CHOL - HDL RATIO 3.6 ratio (2.3-4.9); LDL-HDL RATIO 2.2 ratio (1.5-3.5)
== END | disposition home or self-care (01) ==
LOC: D.LABREF 17:00
PROVIDERS: Nurse Practitioner
DX: I25.10 Atherosclerotic heart disease of native coronary artery without angina pectoris (principal)